=== PATIENT | female | born 1960 | race American Indian/Alaskan Native ===

== ENCOUNTER 2019-06-04 06:27 | Day surgery (SDC) | payer BC ==
[2019-06-04] MEDS ORDERED: SODIUM CHLORIDE 0.9% 1000 ML 1,000 ML IV SCH (07:45)
--- NOTE | 2019-06-04 07:50 | Anesthesia Day of Surgery ---
Anesthesia Day of Surgery - Day of Surgery Patient Examined: Yes Patient H&P Reviewed: Yes Patient is NPO: Yes
--- NOTE | 2019-06-04 07:51 | Anesthesia Consultation ---
Anesthesia Consult and Med Hx Date of service: 06/04/19 - Airway Anesthetic Teeth Evaluation: Bridges (upper), Partials (lower; glued in) ROM Head & Neck: Adequate Mental/Hyoid Distance: Adequate Mallampati Class: Class II Intubation Access Assessment: Good - Pre-Operative Health Status ASA Pre-Surgery Classification: ASA2 Proposed Anesthetic Plan: MAC - Cardiovascular System Hx Hypertension: Yes - Endocrine Hx Renal Disease: Yes (Stone)
[2019-06-04] MEDS ORDERED: PROPOFOL 200 MG/20 ML VIAL IV ONE ×2 (08:41)
[2019-06-04] MEDS ORDERED: WATER FOR IRRIG STERILE 250 ML BOTTLE IR ONE (08:43)
[2019-06-04] MEDS ORDERED: LIDOCAINE MPF (2%) 20 MG/1 ML VIAL 5 ML ONE (09:00)
--- NOTE | 2019-06-04 09:11 | Procedure Note ---
Date of procedure: 06/04/19 Pre-op diagnosis: Colon Polyp Screening Post-op diagnosis: other (Normal colonoscopy (No Colon Polyps or diverticular disease or Internal Hemorrhoids noted)) Procedure: Colonoscopy Anesthesia: MAC Surgeon: KAYLA FORD Estimated blood loss: none Pathology: none Condition: stable Disposition: same day (Resume home medication and follow up in 1 to 2 weeks ([phone]).)
[2019-06-04 09:51] VITALS: BP 103/58
--- NOTE | 2019-06-04 11:50 | Operative Report ---
Thank you for the kind referral. INDICATIONS: This is a 59-year-old -Citizen Of [place] female who had a colonoscopy done as part of colon polyp screening. She has a history of kidney stones and hypertension. PROCEDURE: Colonoscopy. DESCRIPTION OF PROCEDURE: Colonoscopy was done after getting informed consent with MAC anesthesia. Initial rectal exam was unremarkable. Instrument was passed through the rectum onto the cecum, which was identified by the ileocecal valve and the appendiceal orifice. Visualization was fair to good. The terminal ileum was intubated showed normal mucosa. The cecum was also examined on the retroverted view. No additional pathology was noted. The cecum, ascending colon, transverse colon, descending colon, and sigmoid showed normal mucosa. There was no evidence of any polyps, colitis or diverticular disease and the rectum appeared normal on the retroverted view. There was no bleeding associated with the procedure. No complications associated with the procedure. ASSESSMENT: Colonoscopy done for colon polyp screening, normal colon. No colon polyps, diverticular disease or internal hemorrhoids noted. Normal ileal mucosa. PLAN: To have the patient resume home medication. Followup in the office in 1-2 weeks' time. There was no bleeding or complications associated with the procedure. Procedure was done in the GI lab with assistance of the GI lab team, which included MJ De, laron Mar and with assistance of anesthesia. JOB# [id number] HELLEN/FAITH
--- NOTE | 2019-06-04 14:12 | Post Anesthesia Evaluation ---
- Post Anesthesia Evaluation Patient Participated: Yes Airway Patent: Yes Stable Respiratory Function: Yes Nausea/Vomiting: No Temp > 96.8F: Yes Pain Manageable: Yes Adequeate Hydration: Yes Anesthesia Complications: No Block Receding Appropriately: Not Applicable Patient on Ventilator: No
== END 2019-06-04 06:28 | disposition home or self-care (01) ==
LOC: GIO 06:27
DX: Z12.11 Encounter for screening for malignant neoplasm of colon (principal); I10 Essential (primary) hypertension; E78.00 Pure hypercholesterolemia, unspecified; K21.9 Gastro-esophageal reflux disease without esophagitis; Z87.442 Personal history of urinary calculi; Z79.899 Other long term (current) drug therapy; Z79.82 Long term (current) use of aspirin
CPT/HCPCS: 45378; J2704; J7030